=== PATIENT | male | born 2005 | race Two or more races ===

== ENCOUNTER 2024-05-14 17:18 | Emergency (ER) | payer OTHER ==
[~2024-05-14] VITALS: Ht 177.8 cm; Wt 56.7 kg
[2024-05-14] MEDS ORDERED: FAMOtidine 20 MG TABLET PO ONE (19:45)
[2024-05-14 19:51] LABS: HEMATOCRIT 43.4 % (39.0-48.0); HEMOGLOBIN 14.8 g/dL (13-16.00); MEAN CELL VOLUME 88.2 fL (80.0-100.00); MEAN CORPUSCULAR HEMOGLOBIN 30.1 pg (27.00-32.0); MEAN CORPUSCULAR HGB CONC 34.1 g/dl (32.0-36.0); PLATELET COUNT 269 K/uL (150-450); RED BLOOD COUNT 4.92 M/uL (4.00-6.00); RED CELL DISTRIBUTION WIDTH 13.6 % (11.5-14.5)
[2024-05-14] MEDS ORDERED: FAMOTIDINE/PF 20 MG/2 ML VIAL IV ONE (20:00)
[2024-05-14 20:13] LABS: ALBUMIN 3.7 gm/dL (3.4-5.0); BILIRUBIN TOTAL 0.48 mg/dL (0.3-1.2); CALCIUM 9.2 mg/dL (8.5-10.1); CREATININE SERUM 0.64 mg/dL (0.70-1.30); GFR 159.44; GLOBULINA 4.1 G/DL (2.4-3.5); POTASSIUM 3.8 mEq/L (3.5-5.1); TOTAL PROTEIN 7.8 gm/dL (6.4-8.2)
== END 2024-05-14 21:24 | disposition home or self-care (01) ==
LOC: ER 17:20 → EMR PED 18:33
PROVIDERS: General Practice
DX: B34.9 Viral infection, unspecified (principal); R53.81 Other malaise; Z20.822 Contact with and (suspected) exposure to COVID-19